=== PATIENT | male | born 1955 | race Caucasian/White ===

== ENCOUNTER → 2023-11-04 09:12 | Outpatient (REF) | payer OTHER, SELFPAY | LOC: HWRAD 09:12 | PROVIDERS: ATTENDING PHYSICIAN Internal Medicine | DX: M19.90 Unspecified osteoarthritis, unspecified site (principal) | CPT/HCPCS: 73130; 73630 ==

== ENCOUNTER 2023-11-20 10:32 | Emergency (ER) | payer OTHER, SELFPAY ==
[2023-11-20 10:40] VITALS: BP 175/86
[2023-11-20 11:02] VITALS: BP 149/77
--- NOTE | 2023-11-20 11:02 | ED.GENMED ---
History of Present Illness
General
Chief Complaint: Chest Pain
Time Seen by Provider: 11/20/23 10:48
Travel History
Have you had any contact with someone who has COVID-19?: No
Do you have any symptoms of coronavirus? Fever > 100 degrees, chills, cough, shortness of breath, sore throat, loss of taste or smell, muscle aches, or headache?: No
History of Present Illness
History of Present Illness:
68-year-old male with history of remote pulmonary embolus no longer on anticoagulants presents to the emergency department for evaluation of left-sided chest discomfort for the past 2 to 3 days. He reports having left scapular area pain for the
past several weeks as well. Denies any associated shortness of breath. Pain is nonpleuritic, no associated fevers or night sweats. Denies any abdominal pain, nausea, vomiting, or diarrhea. States the pain is comparable to his prior PE that was
provoked by lower extremity orthopedic surgery.
Past History
Past History
ED Past Medical History: Other (PMR, anxiety); Negative Asthma, HTN, Hypercholesterolemia or NIDDM
ED Past Surgical History: Orthopedic and Other (Hernia repair, hemorrhoidectomy)
Social History
Tobacco: Non-smoker
Alcohol: Occasional
Drug: None
Personal:
Living: with family
Employment: Employed
Family History
Family History: Other (Noncontributory)
Review of Systems
Review of Systems
Allergies reviewed?: Yes
All Other Systems: ROS reviewed and negative except as documented in HPI and ROS
Phy Exam
Physical Exam
Physical Exam:
GEN: Well appearing, NAD, WDWN
Eyes: PERRLA, EOMs intact, no scleral icterus
HENT: NCAT, oral mucosa moist, no JVD, no cervical adenopathy.
Lungs: CTAB, no wheezes, rales, rhonchi, normal chest wall excursion
Cardiac: RRR, no M/R/G, no peripheral edema. Radial pulses 2+ bilat
Abdomen: S, NT, ND, NABS, no masses or hepatosplenomegaly
Neuro: AO x 3, no focal deficits to BUE/BLE, normal sensation throughout
MSK: No gross deformity or ecchymosis. No edema. No digital clubbing
Skin: No rashes, petechiae. Normal color, no pallor or jaundice.
Psych: Calm, cooperative, proper hygiene
Scores
Heart Score for Chest Pain Patients
STEMI patient?: No
History: Slightly or Non-Suspicious
ECG: Normal
Age: >/= 65 years
Risk Factors: No Risk Factors
Troponin: </= Normal Limit
Heart Score for Chest Pain Patients: 2
Heart Score Risk: 2.5% MACE over next 6 weeks
Course
Orders/Labs/Results
Orders:
Orders
11/20/23 10:34
Electrocardiogram (*1) Urgent
Reason for Study: Chest Pain
EKG- Treatment ONCE
11/20/23 10:57
Complete Blood Count/With Diff Urgent
Comprehensive Metabolic Panel Urgent
D-Dimer Urgent
Comment: ADD ON
Prothrombin Time Urgent
Troponin I Urgent
11/20/23 11:09
Add On- LAB Urgent
Tests Added?: d dimer
11/20/23 11:44
CT Chest Pe Study Urgent
Comment:
Reason For Exam: sharp chest pain, elevated D dimer
Abnormal Lab Results
11/20/23
10:57
Abs Immat Gran (auto) 0.1 H 10^3/uL
(0-0.05)
Absolute Lymphs (auto) 1.0 L 10^3/uL
(1.2-3.4)
Absolute Monos (auto) 0.7 H 10^3/uL
(0.1-0.6)
Immature Gran % 0.7 H %
(0-0.5)
Lymphocytes % 14.2 L %
(20.5-51.1)
Monocytes % 10.5 H %
(1.7-9.3)
D-Dimer 0.96 H ug/mlFEU
(0.00-0.50)
Glucose 102 H mg/dl
(70-99)
11/20/23 10:57
11/20/23 10:57
Vital Signs
Initial and Last Documented VS:
Initial Vital Signs
Temp Pulse Resp BP Pulse Ox
98.1 F 77 16 175/86 98
11/20/23 10:40 11/20/23 10:40 11/20/23 10:40 11/20/23 10:40 11/20/23 10:40
Last Documented Vital Signs
Temp Pulse Resp BP Pulse Ox
98.1 F 62 11 144/67 96
11/20/23 10:40 11/20/23 12:45 11/20/23 12:45 11/20/23 12:11 11/20/23 13:13
MDM/Problems Addressed
MDM/Problems Addressed:
68-year-old male presents with chest and back pain. Workup is reassuring against ACS as EKG is negative for ischemia and troponin is negative. Unfortunately D-dimer was elevated prompting a CT angiogram of the chest. No evidence for thoracic
aortic dissection/aneurysm or pulmonary embolism was noted. Interestingly the patient is noted to have diverticulitis of the splenic flexure of the colon. Although he has no reproducible abdominal tenderness it is not unreasonable to suspect that
this could be causing his symptoms due to diaphragmatic irritation. I discussed the risk and benefit of antibiotic therapy with the patient at this time we will proceed with antibiotics for 10-day course to treat acute diverticulitis. Outpatient
primary care follow-up is advised
Comment
Comment:
EKG independently interpreted by me shows normal sinus rhythm at a rate of [address] changes concerning for ischemia
*Critical Care Note
Total Time (30-74mins, 75-104mins- exclusive of procedures): Not Applicable
ED Attending Note
-
Portions of this chart may have been created with voice recognition software.� Occasional wrong word or��sound alike� substitutions may have occurred due to the inherent limitations of voice recognition software.
Discharge Plan
Departure
Patient Disposition: Home (Routine Discharge)
Date of Disposition: 11/20/23
Time of Disposition: 12:45
Patient with high blood pressure during this ER visit?: No
Discharge Problem:
Atypical chest pain, Diverticulitis
Instructions: Chest Pain That Is Not Caused by the Heart (DC), Diverticulitis (DC)
Prescriptions:
New
amoxicillin-pot clavulanate 875-125 mg tablet
1 tab PO BID 10 Days Qty: 20 0RF
diclofenac sodium 75 mg tablet,delayed release (DR/EC)
75 mg PO BID Qty: 20 0RF
No Action
sennosides [senna] 1 TABLET tablet
2 tab PO BID 0RF
magnesium hydroxide 30 ML suspension
30 ml PO HS Qty: 1 0RF
Rx Instructions:
USE NIGHTLY UNTIL BM
docusate sodium 100 MG capsule
100 mg PO BID 0RF
mupirocin 1 APPLIC ointment
1 applic intranasal BID Qty: 1 0RF
oxycodone 5 MG tablet
5 mg PO Q4HPRN PRN (Reason: MODERATE-SEVERE PAIN) Qty: 60 0RF
Rx Instructions:
TKA
ONGOING
1 TAB MODERATE OR 2 IF PAIN SEVERE
warfarin [Jantoven] 5 MG tablet
5 mg PO TONIGHT AT 1800 Qty: 75 1RF
Rx Instructions:
TAKE 1 TAB TONIGHT 05/12, 1 TAB 05/13 PM, THEN 1/2 TAB (2.5MG) NIGHTLY UNTIL ADVISED AFTER INR
baclofen 10 MG tablet
10 mg PO HS Qty: 15 0RF
acetaminophen [Tylenol Extra Strength] 500 MG tablet
1,000 mg PO QID Qty: 0 0RF
Referrals:
Navin Herrera MD [Family Provider] -
Activity Restrictions/Additional Instructions:
We discussed that your CT scan diverticulitis of the colon adjacent to the spleen. While your pain presentation would not be typical for diverticulitis, we cannot discount this finding as a potential source given that all other sources of cardiac
or pulmonary chest pain appear to be ruled out. If the pain continues despite antibiotic therapy please follow-up with your primary care physician
Interventions
Interventions:
*Risk Screen - Suicide Last Done: 11/20/23 10:55
*General Assessment Last Done: 11/20/23 10:55
*Neglect/Abuse Screening Last Done: 11/20/23 10:55
*ED COVID-19 Vaccine History Last Done: 11/20/23 10:40
*Nursing Disposition Last Done: 11/20/23 13:13
ED- Cardiac Assessment Last Done: 11/20/23 10:55
Discharge Date and Time
Discharge Date/Time: 11/20/23 13:14
Print Language: KITTITIAN
[2023-11-20 11:19] LABS: % Basophils 0.7 % (0-2); % Eosinophils 3.3 % (0-6); % Immature Granulocytes 0.7 % (0-0.5); % Lymphocytes 14.2 % (20.5-51.1); % Monocytes 10.5 % (1.7-9.3); % Neutrophils 70.6 % (42.2-75.2); Absolute Basophils 0.1 10^3/uL (0-0.2); Absolute Eosinophils 0.2 10^3/uL (0-0.7); Absolute Immature Granulocytes 0.1 10^3/uL (0-0.05); Absolute Monocytes 0.7 10^3/uL (0.1-0.6); Absolute Neutrophils 4.8 10^3/uL (1.4-6.5); Hematocrit 43.5 % (39.0-52.0); Mean Corp Hgb Conc. 34.5 g/dL (33.0-37.0); Mean Corpuscular Hgb 29.1 pg (27.0-31.0); Mean Corpuscular Volume 84.5 fL (80.0-94.0); Mean Platelet Volume 8.7 fL (7.4-10.4); Nucleated Red Blood Cells % 0 % (-); Platelet Count 278 10^3/uL (130-400); Red Blood Cell Count 5.15 10^6/uL (4.70-6.10); Red Cell Dist. Width 12.8 % (11.5-14.5); White Blood Cell Count 6.8 10^3/uL (4.8-10.8)
[2023-11-20 11:24] LABS: ALT (SGPT) 19 U/L (0-50); AST (SGOT) 22 U/L (17-59); Albumin 4.2 g/dl (3.5-5.0); Alkaline Phosphatase 73 U/L (38-126); Blood Urea Nitrogen 20 mg/dl (9-20); Calcium 9.3 mg/dl (8.4-10.2); Carbon Dioxide 24 mmol/L (22-30); Chloride 106 mmol/L (98-107); Glucose 102 mg/dl (70-99); INR 1.05; PT 13.5 Sec (11.4-14.6); Potassium 4.5 mmol/L (3.5-5.1); Sodium 137 mmol/L (135-145); Total Bilirubin 0.6 mg/dl (0.2-1.3); Total Protein 6.9 g/dl (6.3-8.2); eGFR > 60.00
[2023-11-20 11:29] LABS: Troponin I < 0.012 ng/ml
[2023-11-20 11:40] LABS: D-Dimer 0.96 ug/mlFEU (0.00-0.50)
[2023-11-20 12:11] VITALS: BP 144/67
[2023-11-20 13:11] VITALS: BP 127/86; BP 131/82; BP 141/86; PULSE 84; PULSE 91
== END 2023-11-20 13:14 | disposition home or self-care (01) ==
LOC: EMR 10:32
PROVIDERS: EMERGENCY PHYSICIAN Emergency Medicine; FAMILY PHYSICIAN Internal Medicine
DX: R07.89 Other chest pain (principal); K57.32 Diverticulitis of large intestine without perforation or abscess without bleeding; M35.3 Polymyalgia rheumatica; F41.9 Anxiety disorder, unspecified; Z86.711 Personal history of pulmonary embolism
CPT/HCPCS: 99285; 71275; 80053; 84484; 85025; 85379; 85610; 93005; Q9967

== ENCOUNTER → 2023-12-08 10:43 | Outpatient (REF) | payer OTHER, SELFPAY | LOC: HWRAD 10:43 | PROVIDERS: ATTENDING PHYSICIAN Physician Assistant; FAMILY PHYSICIAN Internal Medicine | DX: M79.643 Pain in unspecified hand (principal) | CPT/HCPCS: 73130 ==

== ENCOUNTER 2024-12-11 06:17 | Day surgery (SDC) | payer OTHER, SELFPAY | END 2024-12-11 15:19 | disposition home or self-care (01) | LOC: GI 06:17 | PROVIDERS: ATTENDING PHYSICIAN Specialist | DX: Z12.11 Encounter for screening for malignant neoplasm of colon (principal); K57.30 Diverticulosis of large intestine without perforation or abscess without bleeding; K55.20 Angiodysplasia of colon without hemorrhage; K62.89 Other specified diseases of anus and rectum; K63.5 Polyp of colon | CPT/HCPCS: 45380; 88305 ==

== ENCOUNTER → 2025-02-27 13:39 | Outpatient (REF) | payer OTHER, SELFPAY | LOC: EMG 13:39 | PROVIDERS: ATTENDING PHYSICIAN Internal Medicine | DX: R20.0 Anesthesia of skin (principal) | CPT/HCPCS: 95886; 95910 ==

== ENCOUNTER → 2025-03-25 13:30 | Outpatient (REF) | payer OTHER, SELFPAY | LOC: MRI 3T 13:30 | PROVIDERS: ATTENDING PHYSICIAN Internal Medicine | DX: G95.9 Disease of spinal cord, unspecified (principal); M54.10 Radiculopathy, site unspecified | CPT/HCPCS: 72141 ==

== ENCOUNTER 2025-06-05 05:40 | Day surgery (SDC) | payer OTHER, SELFPAY ==
[2025-05-24 11:04] LABS: Hematocrit 46.7 % (39.0-52.0); Hemoglobin 15.2 g/dL (13.0-18.0); Mean Corp Hgb Conc. 32.5 g/dL (33.0-37.0); Mean Corpuscular Volume 89.6 fL (80.0-94.0); Platelet Count 234 10^3/uL (130-400); Red Cell Dist. Width 13.2 % (11.5-14.5)
[2025-05-24 11:54] LABS: ALT (SGPT) 26 U/L (0-50); AST (SGOT) 25 U/L (17-59); Albumin 4.4 g/dl (3.5-5.0); Alkaline Phosphatase 70 U/L (38-126); Blood Urea Nitrogen 20 mg/dl (9-20); Calcium 9.2 mg/dl (8.4-10.2); Carbon Dioxide 26 mmol/L (22-30); Chloride 108 mmol/L (98-107); Glucose 101 mg/dl (70-99); Potassium 4.7 mmol/L (3.5-5.1); Sodium 143 mmol/L (135-145); Total Protein 7.0 g/dl (6.3-8.2); eGFR > 60.00
[2025-05-24 14:02] VITALS: BMI 34.8
[2025-06-05] VITALS (11 sets, daily range): BP systolic 127–178; BP diastolic 74–150; BMI 34.8
[2025-06-05] MEDS: TYLENOL 1000 MG PO (06:16)
[2025-06-05] MEDS: LYRICA 150 MG PO (06:16)
[2025-06-05] MEDS: METHOCARBAMOL 1500 MG PO (06:16)
[2025-06-05] MEDS: CELEBREX 200 MG PO (06:16)
[2025-06-05] MEDS: NORMOSOL-R/PLASMALYTE-A 1000 IV (06:28)
--- NOTE | 2025-06-05 08:13 | W.PN.UPDATE ---
Update Note
Progress Note Update
Cervical arthritis w/ myelopathy s/p C3-C5 ACDF w/ Silveira 06/05/25
DVT prophylaxis - b/l SCDs/TEDs
Labile HTN - monitor BP
- Will add IV Hydralazine for SBP >165
- Ensure adequate pain control
- Can discuss BP mgmt further w/ PCP upon d/c
Remote PE/RLE DVT after RLE fx - promote frequent and early ambulation as tolerated
- SCDs to be worn AT ALL TIMES of immobility during admission
GERD - continue PPI therapy
Balance difficulties - on fall precautions
s/p b/l TKA, 04/2018, by Dr. Alessio Bates
Colon polyps
Diverticulosis
Hemorrhoids
Fatty liver disease
PMR hx, treated w/ steroid therapy
Prostate CA, 2018, s/p XRT
Previous L eye vitreous hemorrhage
Anxiety
Obesity, BMI 34.8
[2025-06-05] MEDS: MORPHINE SULFATE 1 MG IV ×3 (09:25→09:55)
[2025-06-05] MEDS: ULTRAM 50 MG PO (11:24)
== END 2025-06-05 11:50 | disposition home or self-care (01) ==
LOC: SDS 05:40
PROVIDERS: ATTENDING PHYSICIAN Orthopaedic Surgery Orthopaedic Surgery of the Spine; FAMILY PHYSICIAN Internal Medicine
DX: M47.12 Other spondylosis with myelopathy, cervical region (principal)
CPT/HCPCS: 22551; 22552 ×2; 22853 ×3; 20930; 36415; 72020; 80053; 85027; 87070; 93005; C1713; C1776